=== PATIENT | female | born 1960 | race Caucasian/White ===

== ENCOUNTER → 2017-12-04 | Outpatient (CLI) | payer BC ==
[~2017-12-04] MED LIST: Z.0.VICODIN HP TAB1 PO; Z.0.ZOLOFT50 MG PO
--- NOTE | 2017-12-05 11:10 | Diagnostic Imaging Report ---
PROCEDURE:BONE DXA DUAL ENERGY INDICATION: Screening for osteoporosis. The patient history questionnaire was completed and is available on PACS. COMPARISON:12/08/2014. FINDINGS: Evaluation of the left hip and lumbar spine was performed utilizing DEXA Hologic bone densitometer. The study is technically adequate. The patient's fracture risk is compared to an age-matched control. The patient denies prior surgery/fracture of the spine, hips or forearm. Left femoral neck bone mineral density: 1.13 g/cm2, T-score is 2.0, Z-score is 3.1. Left total hip bone mineral density: 1.282 g/cm2, T-score is 2.4, Z-score is a 3.2. Measured bone mineral density in the left total hip has decreased to 3.8% since the baseline study (12/08/2014). Lumbar spine total bone mineral density: 1.092 g/cm2, T-score is 0.4, Z-score is 1.6. Measured bone mineral density in the lumbar spine has increased by 1.5% since the baseline study (12/08/2014) IMPRESSION: Bone mineralization by WHO Classification is normal. The fracture risk is not increased. Correlate clinically for the necessity and timing of the next bone mineral density study. Dictated by: Jones Burch M.D. on 12/05/2017 at 11:11 Electronically approved by: Jones Burch M.D. on 12/05/2017 at 11:11
--- NOTE | 2017-12-05 15:59 | Diagnostic Imaging Report ---
#[id number] - MGSCRBIL #BILATERAL DIGITAL SCREENING MAMMOGRAM WITH CAD: 12/04/2017 CLINICAL: Routine screening. Comparison is made to exams dated: 12/08/2014 mammogram and 02/27/2012 mammogram - [facility]. Current study contains 4 films. There are scattered fibroglandular elements in both breasts. Current study was also evaluated with a Computer Aided Detection (CAD) system. There is a benign calcification in the right breast. No significant masses, calcifications, or other findings are seen in either breast. There has been no significant interval change. IMPRESSION: BENIGN There is no mammographic evidence of malignancy. A 1 year screening mammogram is recommended. The patient will be notified by letter of the results. Magnus wilkinson/susan:12/05/2017 13:22:38 Vending Machine Technician: Sandie ASHTON(R)(M), [facility] letter sent: Compared to Prior B9 Mammogram BI-RADS: 2 Benign
== END ==
LOC: MAMMO 09:14
PROVIDERS: ATTEND Obstetrics & Gynecology
DX: Z12.31 Encounter for screening mammogram for malignant neoplasm of breast (principal); Z13.820 Encounter for screening for osteoporosis
CPT/HCPCS: 77067; 77080

== ENCOUNTER → 2018-11-06 | Outpatient (CLI) | payer BC | LOC: MAMMO 15:03 | PROVIDERS: ATTEND Obstetrics & Gynecology | DX: Z12.31 Encounter for screening mammogram for malignant neoplasm of breast (principal) | CPT/HCPCS: 77067 ==

== ENCOUNTER 2020-06-04 10:18 | Emergency (ER) | payer BC ==
[~2020-06-04] VITALS: Ht 162.6 cm; Wt 88.5 kg
--- NOTE | 2020-06-04 10:57 | Emergency Department Note ---
History of Present Illnes History of Present Illness Chief Complaint: Skin Rash or Abscess History of Present Illness This is a 59 year old female PATIENT IN FROM HOME WITH COMPLAINTS OF RASH TO GROIN AREA, STATES SHE FIRST NOTICED IT YESTERDAY AND IT IS WORSE TODAY; NO PAIN, RATES IRRITATION /10, APPEARS IN NO DISTRESS, RESP EVEN AND NONLABORED, APPEARS IN NO DISTRESS. Historian: Patient Arrival Mode: Car Mathematics Academic Chair Required: No Onset (how long ago): day(s) (2) Location: BILATERAL GROIN Quality: IRRITATED Radiation: Reports non-radiation Severity: moderate Onset quality: gradual Timing of current episode: constant Chronicity: new Context: Denies recent illness Relieving factors: none Exacerbating factors: none Associated symptoms: Reports denies other symptoms Past Medical/Family History Physician Review I have reviewed the patient's past medical and family history. Any updates have been documented here. Past Medical History Recent Fever: No Clinical Suspicion of Infectio: No New/Unexplained Change in Ment: No Past Medical History: Anxiety, Depression Other Medical History: ANXIETY, SHINGLES Past Surgical History: Colon Resection Other Surgery: TUMMY TUCK Social History Smoking Cessation: Never Smoker Counseling Performed: No Alcohol Use: Occasional Any Illegal Drug Use: No TB Exposure/Symptoms: No Physically hurt or threatened: No Family History Family history of heart diseas: No Other Last Tetanus: UNK Any Pre-Existing Lines (PICC,: No Review of Systems Review of Systems Constitutional: Reports no symptoms EENTM: Reports no symptoms Cardiovascular: Reports no symptoms Respiratory: Reports no symptoms Gastrointestinal: Reports no symptoms Genitourinary: Reports no symptoms Musculoskeletal: Reports no symptoms Integumentary: Reports as per HPI Neurological: Reports no symptoms Psychological: Reports no symptoms Endocrine: Reports no symptoms Hematological/Lymphatic: Reports no symptoms Physical Exam Related Data Allergies: Coded Allergies: No Known Allergies (Unverified , 04/28/12) Triage Vital Signs Vital Signs Date Time Temp Pulse Resp B/P (MAP) Pulse Ox O2 Delivery O2 Flow Rate FiO2 06/04/20 10:21 97.6 82 18 197/77 96 Room Air Vital signs reviewed: Yes Physical Exam CONSTITUTIONAL Constitutional: Present well-developed, Present well-nourished HENT HENT: Present normocephalic, Present atraumatic, Present oropharynx clear/moist, Present nose normal HENT L/R: Present left ext ear normal, Present right ext ear normal EYES Eyes: Reports PERRL, Reports conjunctivae normal NECK Neck: Present ROM normal PULMONARY Pulmonary: Present effort normal, Present breath sounds normal CARDIOVASCULAR Cardiovascular: Present regular rhythm, Present heart sounds normal, Present capillary refill normal, Present normal rate GASTROINTESTINAL Abdominal: Present soft, Present nontender, Present bowel sounds normal GENITOURINARY Genitourinary: Present exam deferred SKIN Skin: Present warm, Present dry, Present other (INTERTRIGO RASH TO BILATERAL INGUINAL AREA) MUSCULOSKELETAL Musculoskeletal: Present ROM normal NEUROLOGICAL Neurological: Present alert, Present oriented x 3, Present no gross motor or sensory deficits PSYCHOLOGICAL Psychological: Present mood/affect normal, Present judgement normal Assessment & Plan Medical Decision Making MDM INTERTRIGO RASH BILATERAL INGUINAL AREA Reassessment Reassessment DC HOME, KETOCONAZOLE CREAM, NYSTATIN POWDER, KEEP AREA CLEAN AND DRY AND AIRED OUT WHEN FEASIBLE, F/U PCP Assessment & Plan Final Impression: (1) Intertriginous candidiasis Depart Disposition: HOME, SELF-CARE Last Vital Signs Date Time Temp Pulse Resp B/P (MAP) Pulse Ox O2 Delivery O2 Flow Rate FiO2 06/04/20 10:36 77 16 188/76 97 Room Air 06/04/20 10:21 97.6 NILE ACUNA MD Jun 04, 2020 10:57
== END 2020-06-04 11:00 | disposition home or self-care (01) ==
LOC: ER 10:30
DX: B37.2 Candidiasis of skin and nail (principal); F41.9 Anxiety disorder, unspecified; F32.9 Major depressive disorder, single episode, unspecified; Z98.0 Intestinal bypass and anastomosis status
CPT/HCPCS: 99282

== ENCOUNTER 2020-08-17 18:20 | Emergency (ER) | payer BC ==
[~2020-08-17] VITALS: Ht 162.6 cm; Wt 88.5 kg
[2020-08-17] MEDS ORDERED: MORPHINE SULFATE INJ 4 MG/ML INJ 1ML IV PRN (18:45)
[2020-08-17] MEDS ORDERED: ZOLOFT50 MG PO (18:57)
[2020-08-17 18:58] LABS: BASOPHILS % 0.4 % (0.0-1.0); EOSINOPHILS # (AUTO) 0.1 (0.0-0.4); EOSINOPHILS % 1.1 % (0.0-6.0); HEMATOCRIT 35.7 % (34.2-44.1); HEMOGLOBIN 11.8 g/dL (12.0-16.0); LYMPHOCYTES # (AUTO) 2.8 (1.0-3.2); LYMPHOCYTES % 28.9 % (18.0-39.1); MEAN CORPUSCULAR HEMOGLOBIN 29.1 pg (28-32); MEAN CORPUSCULAR HGB CONC 33.1 g/dL (31-35); MEAN CORPUSCULAR VOLUME 87.9 fL (81-99); MONOCYTES # (AUTO) 0.6 (0.2-0.8); MONOCYTES % 5.9 % (4.4-11.3); NEUTROPHILS # (AUTO) 6.1 (2.1-6.9); NEUTROPHILS % 63.4 % (38.7-80.0); PLATELET COUNT 335 x10e3/uL (140-360); RED BLOOD COUNT 4.06 x10e6/uL (3.6-5.1)
[2020-08-17 19:24] LABS: ALANINE AMINOTRANSFERASE 39 IU/L (0-55); ALBUMIN 3.5 g/dL (3.5-5.0); ALBUMIN/GLOBULIN RATIO 1.2 (0.8-2.0); ALKALINE PHOSPHATASE 77 IU/L (40-150); ANION GAP 14.5 mmol/L (8-16); BLOOD UREA NITROGEN 14 mg/dL (7-26); BUN/CREATININE RATIO 15 (6-25); CALCIUM 8.2 mg/dL (8.4-10.2); CARBON DIOXIDE 23 mmol/L (22-29); CHLORIDE 106 mmol/L (98-107); CREATININE, SERUM 0.92 mg/dL (0.57-1.11); EST GLOMERULAR FILTRATION RATE > 60 ML/MIN (60-); GLUCOSE 113 mg/dL (74-118); POTASSIUM 3.5 mmol/L (3.5-5.1); SODIUM 140 mmol/L (136-145)
[2020-08-17] MEDS ORDERED: TYLENOL # 31 EA PO ×2 (20:46→21:06)
[2020-08-17] MEDS ORDERED: ZOFRAN4 MG PO ×2 (20:46→21:06)
== END 2020-08-17 20:45 | disposition home or self-care (01) ==
LOC: ER 18:50
DX: R10.11 Right upper quadrant pain (principal); K80.20 Calculus of gallbladder without cholecystitis without obstruction; F41.9 Anxiety disorder, unspecified; F32.9 Major depressive disorder, single episode, unspecified; Z98.0 Intestinal bypass and anastomosis status
CPT/HCPCS: 36415; 76705; 80053; 83690; 85025; 93005; 99284; J2270

== ENCOUNTER → 2020-08-31 | Day surgery (SDC) | payer BC ==
[~2020-08-31] MED LIST changes: +BUPIVACAINE 0.25%/EPI 30ML SDV INJ ONE; +CALCET TABLET1 EACH PO; +CENTRUM CHEWAB1 EAC1 PO; +DEXAMETHASONE SOD PHOS INJ 4 MG/ML VIAL ONE; +FENTANYL CITRATE/PF 100MCG/2 ML INJ ONE; +FLUCONAZOLE100 MG PO; +GLYCOPYRROLATE INJ 0.2 MG/ML VIAL ONE; +KETOROLAC TROMETHAMINE 30 MG/ML VIAL ONE; +LIDOCAINE HCL 2% LOCAL INJ 5 ML SDV VIAL INJ ONE; +MICONAZOLE 7100 MG VG; +NEOSTIGMINE 1 MG/ML 10ML VIAL ONE; +ONDANSETRON HCL INJ 2MG/ML 2ML 2 MG/ML VIAL ONE; +PROPOFOL IV EMULSION 10 MG/ML 20 ML VIAL ONE; +ROCURONIUM BROMIDE 10 MG/ML 5ML VIAL IV ONE; +SEVOFLURANE INHAL SOLN 250 ML PEN BTL ONE; +TYLENOL # 31 EA PO; +ZOFRAN4 MG PO; +ZOLOFT50 MG PO
[2020-08-31 13:05] VITALS: BP 130/69
== END | disposition home or self-care (01) ==
LOC: OR 08:38
PROVIDERS: ATTEND Surgery
DX: K80.10 Calculus of gallbladder with chronic cholecystitis without obstruction (principal); R05 Cough; K57.90 Diverticulosis of intestine, part unspecified, without perforation or abscess without bleeding; F41.9 Anxiety disorder, unspecified; Z86.16 Personal history of COVID-19
CPT/HCPCS: 47562; 88304; C1766; J1100; J1885; J2001; J2405; J2704; J2710; J3010

== ENCOUNTER 2020-09-08 14:10 | Emergency (ER) | payer BC ==
[~2020-09-08] VITALS: Ht 162.6 cm; Wt 88.5 kg
[~2020-09-08 14:10] MED LIST changes: -BUPIVACAINE 0.25%/EPI 30ML SDV INJ ONE; -DEXAMETHASONE SOD PHOS INJ 4 MG/ML VIAL ONE; -FENTANYL CITRATE/PF 100MCG/2 ML INJ ONE; -FLUCONAZOLE100 MG PO; -GLYCOPYRROLATE INJ 0.2 MG/ML VIAL ONE; -KETOROLAC TROMETHAMINE 30 MG/ML VIAL ONE; -LIDOCAINE HCL 2% LOCAL INJ 5 ML SDV VIAL INJ ONE; -MICONAZOLE 7100 MG VG; -NEOSTIGMINE 1 MG/ML 10ML VIAL ONE; -ONDANSETRON HCL INJ 2MG/ML 2ML 2 MG/ML VIAL ONE; -PROPOFOL IV EMULSION 10 MG/ML 20 ML VIAL ONE; -ROCURONIUM BROMIDE 10 MG/ML 5ML VIAL IV ONE; -SEVOFLURANE INHAL SOLN 250 ML PEN BTL ONE
[2020-09-08] MEDS ORDERED: MICONAZOLE 7100 MG VG (14:53)
[2020-09-08] MEDS ORDERED: FLUCONAZOLE100 MG PO (14:53)
== END 2020-09-08 16:01 | disposition home or self-care (01) ==
LOC: ER 14:55
DX: B37.3 Candidiasis of vulva and vagina (principal); Z86.16 Personal history of COVID-19; Z90.49 Acquired absence of other specified parts of digestive tract
CPT/HCPCS: 99283

== ENCOUNTER 2022-09-27 14:29 | Emergency (ER) | payer BC, OTHER ==
[~2022-09-27] VITALS: Ht 162.6 cm; Wt 88.5 kg
[~2022-09-27 14:29] MED LIST changes: +FLUCONAZOLE100 MG PO; +MICONAZOLE 7100 MG VG
[2022-09-27] MEDS ORDERED: KETOROLAC TROMETHAMINE 30 MG/ML VIAL IV STA (15:15)
[2022-09-27 15:19] LABS: BASOPHILS # (AUTO) 0.1 (0.0-0.1); BASOPHILS % 0.6 % (0.0-1.0); EOSINOPHILS # (AUTO) 0.2 (0.0-0.4); EOSINOPHILS % 2.4 % (0.0-6.0); HEMATOCRIT 39.6 % (34.2-44.1); HEMOGLOBIN 13.7 g/dL (12.0-16.0); LYMPHOCYTES # (AUTO) 2.2 (1.0-3.2); LYMPHOCYTES % 25.5 % (18.0-39.1); MEAN CORPUSCULAR HEMOGLOBIN 30.7 pg (28-32); MEAN CORPUSCULAR HGB CONC 34.6 g/dL (31-35); MEAN CORPUSCULAR VOLUME 88.8 fL (81-99); MONOCYTES # (AUTO) 0.4 (0.2-0.8); MONOCYTES % 4.9 % (4.4-11.3); NEUTROPHILS # (AUTO) 5.7 (2.1-6.9); PLATELET COUNT 253 x10e3/uL (140-360); RED BLOOD COUNT 4.46 x10e6/uL (3.6-5.1); RED CELL DISTRIBUTION WIDTH 12.5 % (11.7-14.4)
[2022-09-27 15:25] LABS: CLARITY,URINE CLEAR (CLEAR); COLOR,URINE YELLOW (YELLOW); KETONES,URINE NEGATIVE (NEGATIVE); LEUKOCYTE ESTERASE ,URINE NEGATIVE (NEGATIVE); NITRITE,URINE NEGATIVE (NEGATIVE); PROTEIN,URINE DIPSTICK NEGATIVE (NEGATIVE); URINE UROBILINOGEN 0.2 mg/dL (0.2 - 1)
[2022-09-27 15:35] LABS: ALBUMIN 4.3 g/dL (3.5-5.0); ALBUMIN/GLOBULIN RATIO 1.3 (0.8-2.0); CALCIUM 9.4 mg/dL (8.4-10.2); CREATININE, SERUM 0.7 mg/dL (0.57-1.11)
[2022-09-27 15:40] LABS: BACTERIA,URINE RARE /HPF; EPITHELIAL CELLS,URINE FEW /LPF; RBC,URINE 0-5 /HPF (0-5); RENAL EPITHELIAL CELLS,URINE FEW
[2022-09-27] MEDS ORDERED: IOPAMIDOL 370 MG/ML 100 ML INFUS..BTL INJ ONE (16:16)
[2022-09-27] MEDS ORDERED: ANAPROX DS550 MG PO (16:40)
== END 2022-09-27 16:53 | disposition home or self-care (01) ==
LOC: ER 14:49
DX: R10.31 Right lower quadrant pain (principal); R10.2 Pelvic and perineal pain; F41.9 Anxiety disorder, unspecified
CPT/HCPCS: 36415; 74177; 76830; 76856; 80053; 81001; 85025; 99284; J1885; Q9967

== ENCOUNTER 2024-04-19 17:50 | Emergency (ER) | payer BC ==
[~2024-04-19] VITALS: Ht 162.6 cm; Wt 88.5 kg
[~2024-04-19 17:50] MED LIST changes: +ANAPROX DS550 MG PO
[2024-04-19 18:01] VITALS: TEMP 98.4
[2024-04-19 18:49] LABS: BASOPHILS # (AUTO) 0.1 (0.0-0.1); BASOPHILS % 0.6 % (0.0-1.0); EOSINOPHILS # (AUTO) 0.1 (0.0-0.4); EOSINOPHILS % 1.5 % (0.0-6.0); HEMATOCRIT 41.4 % (34.2-44.1); HEMOGLOBIN 13.9 g/dL (12.0-16.0); LYMPHOCYTES % 25.2 % (18.0-39.1); MEAN CORPUSCULAR HEMOGLOBIN 30.2 pg (28-32); MEAN CORPUSCULAR HGB CONC 33.6 g/dL (31-35); MONOCYTES # (AUTO) 0.4 (0.2-0.8); MONOCYTES % 5.3 % (4.4-11.3); NEUTROPHILS # (AUTO) 5.3 (2.1-6.9); NEUTROPHILS % 67.1 % (38.7-80.0); PLATELET COUNT 254 x10e3/uL (140-360); RED CELL DISTRIBUTION WIDTH 12.5 % (11.7-14.4); WHITE BLOOD COUNT 7.86 x10e3/uL (4.8-10.8)
[2024-04-19 18:55] LABS: CLARITY,URINE CLEAR (CLEAR); COLOR,URINE YELLOW (YELLOW); LEUKOCYTE ESTERASE ,URINE NEGATIVE (NEGATIVE); NITRITE,URINE NEGATIVE (NEGATIVE); PH,URINE 6 (5 - 7)
[2024-04-19 18:56] LABS: BILIRUBIN,URINE NEGATIVE (NEGATIVE); GLUCOSE, URINE NEGATIVE (NEGATIVE); KETONES,URINE NEGATIVE (NEGATIVE); PROTEIN,URINE DIPSTICK NEGATIVE (NEGATIVE); URINE UROBILINOGEN 0.2 mg/dL (0.2 - 1)
[2024-04-19 18:58] LABS: BACTERIA,URINE FEW /HPF; EPITHELIAL CELLS,URINE FEW /LPF; MUCUS,URINE MODERATE (RARE); RBC,URINE 0-5 /HPF (0-5)
[2024-04-19 19:08] LABS: ALBUMIN 4.6 g/dL (3.5-5.0); ALBUMIN/GLOBULIN RATIO 1.6 (0.8-2.0); ANION GAP 16.4 mmol/L (8-16); BILIRUBIN,TOTAL 0.8 mg/dL (0.2-1.2); CALCIUM 9.6 mg/dL (8.4-10.2); CREATININE, SERUM 0.8 mg/dL (0.57-1.11); TOTAL PROTEIN 7.5 g/dL (6.5-8.1)
[2024-04-19 19:09] LABS: POTASSIUM 3.4 mmol/L (3.5-5.1)
[2024-04-19] MEDS: KETOROLAC TROMETHAMINE 30 MG/ML VIAL IV ONE (19:14)
[2024-04-19 21:15] VITALS: PULSE 59; RESP 16; O2SAT 95
== END 2024-04-19 21:20 | disposition home or self-care (01) ==
LOC: ER 18:05
DX: R10.30 Lower abdominal pain, unspecified (principal); K57.30 Diverticulosis of large intestine without perforation or abscess without bleeding; F41.9 Anxiety disorder, unspecified; F32.A Depression, unspecified
CPT/HCPCS: 36415; 74177; 80053; 81001; 83690; 85025; 99284; J1885

== ENCOUNTER → 2024-05-20 | Day surgery (SDC) | payer BC ==
[~2024-05-20] MED LIST changes: +CALCIUM; +FENTANYL CITRATE/PF 100MCG/2 ML INJ ONE; +FIBER GUMMIES2 GM
[2024-05-20] MEDS: LACTATED RINGER'S 1,000 ML ONE (12:03)
[2024-05-20 14:11] VITALS: TEMP 98
[2024-05-20 14:40] VITALS: BP 126/70; PULSE 60; RESP 14; O2SAT 98
== END | disposition home or self-care (01) ==
LOC: OR 11:40
PROVIDERS: ATTEND Internal Medicine Gastroenterology
DX: K29.70 Gastritis, unspecified, without bleeding (principal); K31.7 Polyp of stomach and duodenum; K59.00 Constipation, unspecified; K31.89 Other diseases of stomach and duodenum; K20.90 Esophagitis, unspecified without bleeding; K57.30 Diverticulosis of large intestine without perforation or abscess without bleeding; Z98.0 Intestinal bypass and anastomosis status; K64.8 Other hemorrhoids; E66.9 Obesity, unspecified; F41.9 Anxiety disorder, unspecified; F32.A Depression, unspecified; Z01.810 Encounter for preprocedural cardiovascular examination; Z79.899 Other long term (current) drug therapy; Z87.19 Personal history of other diseases of the digestive system
CPT/HCPCS: 43239; 43251; 45378; 93005; J2470; J3010; J7121

== ENCOUNTER → 2025-04-07 | Outpatient (REF) | payer OTHER ==
[~2025-04-07] MED LIST changes: -FENTANYL CITRATE/PF 100MCG/2 ML INJ ONE
== END ==
LOC: MAMMO 04-05 09:53
PROVIDERS: ATTEND Physician Assistant Medical
DX: Z12.31 Encounter for screening mammogram for malignant neoplasm of breast (principal)
CPT/HCPCS: 77067